=== PATIENT | female | born 2000 | race Caucasian/White ===

== ENCOUNTER → 2024-08-21 | Outpatient (CLI) | payer OTHER | LOC: M CARPUL 13:53 | PROVIDERS: ATTEND General Practice | DX: O26.892 Other specified pregnancy related conditions, second trimester (principal); R01.1 Cardiac murmur, unspecified; Z3A.00 Weeks of gestation of pregnancy not specified ==

== ENCOUNTER → 2024-11-14 | Outpatient (REF) | payer OTHER | LOC: M SFHCWAGY 12:22 | PROVIDERS: ATTEND Specialist | DX: Z34.03 Encounter for supervision of normal first pregnancy, third trimester (principal); Z36.85 Encounter for antenatal screening for Streptococcus B ==

== ENCOUNTER → 2024-11-30 | Outpatient (CLI) | payer OTHER ==
[~2024-11-30] MED LIST: FOLI400T13 PO; KEPP1TAB PO; PRENTAB9 PO
== END ==
LOC: M RAD 08:15
PROVIDERS: ATTEND Specialist
DX: Z34.03 Encounter for supervision of normal first pregnancy, third trimester (principal); Z3A.38 38 weeks gestation of pregnancy

== ENCOUNTER 2024-12-06 19:08 | Outpatient (CLI) | payer OTHER ==
[~2024-12-06] VITALS: Ht 170.2 cm; Wt 98.9 kg
[2024-12-06 19:30] VITALS: BP 136/84; O2SAT 99
[2024-12-06] MEDS ORDERED: KEPP1TAB PO (19:37)
[2024-12-06] MEDS ORDERED: PRENTAB9 PO (19:37)
[2024-12-06] MEDS ORDERED: FOLI400T13 PO (19:37)
[2024-12-06] MEDS ORDERED: HOME MED LIST COMPLETE! XX SCH (19:40)
[2024-12-06 20:56] LABS: KETONE, URINE AUTO RFX NEGATIVE (NEGATIVE); LEUKOCYTE ESTERASE UR AUTO RFX NEGATIVE (NEGATIVE); MUCUS, URINE RFX SMALL (NEGATIVE); NITRITE, URINE AUTO RFX NEGATIVE (NEGATIVE); RBC, URINE AUTO RFX 3 /HPF (0-3); SQUAM EPITHELIAL CELL UR AURFX 1 /HPF (0-6); WBC, URINE AUTO RFX 2 /HPF (0-3)
[2024-12-06 20:59] VITALS: BP 123/74
== END 2024-12-06 21:05 | disposition home or self-care (01) ==
LOC: M LDO 19:08
PROVIDERS: ATTEND Obstetrics & Gynecology
DX: O26.893 Other specified pregnancy related conditions, third trimester (principal); G40.909 Epilepsy, unspecified, not intractable, without status epilepticus; O99.353 Diseases of the nervous system complicating pregnancy, third trimester; R10.2 Pelvic and perineal pain; Z3A.39 39 weeks gestation of pregnancy
CPT/HCPCS: 59025; 81001; G0463

== ENCOUNTER 2025-04-11 06:08 | Emergency (ER) | payer OTHER ==
[~2025-04-11] VITALS: Ht 170.2 cm; Wt 84.0 kg
[~2025-04-11 06:08] MED LIST changes: +COLA100C5 PO; +IBUP80TA PO; +OXYC1TAB23 PO; +PERC5TAB12 PO
[2025-04-11 06:38] LABS: KETONE, URINE AUTO RFX NEGATIVE (NEGATIVE); LEUKOCYTE ESTERASE UR AUTO RFX NEGATIVE (NEGATIVE); MUCUS, URINE RFX SMALL (NEGATIVE); NITRITE, URINE AUTO RFX NEGATIVE (NEGATIVE); RBC, URINE AUTO RFX TNTC /HPF (0-3); SQUAM EPITHELIAL CELL UR AURFX 2 /HPF (0-6); WBC, URINE AUTO RFX 1 /HPF (0-3)
[2025-04-11 07:16] LABS: BASO # 0.1 10^3/uL (0.0-0.2); BASO % 0.5 % (0.0-1.0); EOS # 0.5 10^3/uL (0.0-0.5); EOS % 4.8 % (0.0-3.0); HEMOGLOBIN 12.9 g/dl (12.0-15.5); LYMPH # 1.3 10^3/uL (1.5-5.0); MEAN CORPUSCULAR HEMOGLOBIN 28.5 pg (27.0-33.0); MEAN CORPUSCULAR HGB CONC 33.1 g/dl (32.0-36.5); MEAN CORPUSCULAR VOLUME 86.1 fl (80.0-96.0); MONO # 0.8 10^3/uL (0.0-0.8); MONO % 8.1 % (2.0-8.0); NEUTROPHILS # 7.5 10^3/uL (1.5-8.5); NEUTROPHILS % 73.4 % (36.0-66.0); PLATELET COUNT, AUTOMATED 290 10^3/uL (150-450); RED BLOOD COUNT 4.53 10^6/uL (4.00-5.40); WHITE BLOOD COUNT 10.2 10^3/uL (4.0-10.0)
[2025-04-11 07:37] LABS: HCG, SERUM QUALITATIVE NEGATIVE (NEGATIVE)
[2025-04-11 07:46] LABS: ALBUMIN 4.1 G/DL (3.2-5.2); ALKALINE PHOSPHATASE 91 U/L (35-104); ALT/SGPT 24 U/L (7.0-40); AST/SGOT 45 U/L (<34); BILIRUBIN,DIRECT < 0.1 MG/DL (<0.4); BILIRUBIN,TOTAL 0.3 MG/DL (0.3-1.2); BLOOD UREA NITROGEN 16 MG/DL (9-23); CALCIUM LEVEL 9.2 MG/DL (8.5-10.1); CARBON DIOXIDE LEVEL 25 MMOL/L (20-31); CHLORIDE LEVEL 109 MMOL/L (98-107); CREATININE FOR GFR 0.82 MG/DL (0.55-1.30); GLOMERULAR FILTRATION RATE > 90.0 (>60); GLUCOSE, FASTING 106 MG/DL (60-100); LIPASE 40 U/L (12-53); POTASSIUM SERUM 5.2 MMOL/L (3.5-5.1); SODIUM LEVEL 144 MMOL/L (136-145); TOTAL PROTEIN 7.5 G/DL (5.7-8.2)
[2025-04-11] MEDS ORDERED: ISOVUE-370 76% 100ML VIAL As Ordered ONE (08:57)
[2025-04-11] MEDS: KETOROLAC 30 MG/ML 1ML VIAL IV ONE (08:59)
[2025-04-11] MEDS: NS (Normal Saline) 0.9% 1,000 ML IV ONE (09:00)
[2025-04-11] MEDS: ONDANSETRON 4MG 2ML VIAL IV ONE (09:04)
[2025-04-11] MEDS ORDERED: TAMS-18 PO (10:51)
[2025-04-11] MEDS ORDERED: KETO-204 PO (10:57)
[2025-04-11 11:13] VITALS: BP 119/95; TEMP 97.5; O2SAT 100
== END 2025-04-11 11:08 | disposition home or self-care (01) ==
LOC: M ED 06:08
DX: N13.2 Hydronephrosis with renal and ureteral calculous obstruction (principal); G40.909 Epilepsy, unspecified, not intractable, without status epilepticus; F17.200 Nicotine dependence, unspecified, uncomplicated; Z79.899 Other long term (current) drug therapy
CPT/HCPCS: 74177; 80048; 80076; 81001; 83690; 84703; 85025; 96361; 96374; 96375; 99284; J1885; J2405; Q9967

== ENCOUNTER 2025-10-05 12:52 | Emergency (ER) | payer OTHER ==
[~2025-10-05] VITALS: Ht 170.2 cm; Wt 84.4 kg
[~2025-10-05 12:52] MED LIST changes: +KETO-204 PO; +TAMS-18 PO
[2025-10-05] MEDS ORDERED: INCA0.35 (13:09)
[2025-10-05 15:22] VITALS: BP 132/71; TEMP 97.4; O2SAT 98
[2025-10-05] MEDS ORDERED: KETO2CR TOP (15:23)
[2025-10-05] MEDS ORDERED: MUPI30CR TOP (15:23)
== END 2025-10-05 15:48 | disposition home or self-care (01) ==
LOC: M ED 12:52
DX: L03.111 Cellulitis of right axilla (principal); L03.112 Cellulitis of left axilla; L73.9 Follicular disorder, unspecified; F17.290 Nicotine dependence, other tobacco product, uncomplicated; F12.10 Cannabis abuse, uncomplicated; Z79.899 Other long term (current) drug therapy